=== PATIENT | male | born 1955 | race Caucasian/White ===

== ENCOUNTER → 2017-12-15 | Outpatient (CLI) | payer BC ==
[~2017-12-15] MED LIST: ADV100/50 INH; ALB6.7R INH; CEP500 PO
== END ==
LOC: LAB 12:38
PROVIDERS: ATTEND Orthopaedic Surgery Hand Surgery
DX: M25.571 Pain in right ankle and joints of right foot (principal); M25.474 Effusion, right foot; M10.9 Gout, unspecified
CPT/HCPCS: 36415; 84550

== ENCOUNTER → 2018-12-24 | Outpatient (REF) | payer BC ==
[~2018-12-24] MED LIST changes: +ALLO100T70 PO
== END ==
LOC: ZZPBJ 17:57
PROVIDERS: ATTEND Orthopaedic Surgery Hand Surgery
DX: M1A.9XX1 Chronic gout, unspecified, with tophus (tophi) (principal)
CPT/HCPCS: 87070; 87073; 87205

== ENCOUNTER → 2018-12-25 | Outpatient (REF) | payer BC | LOC: ZZSENDIN 12:00 | PROVIDERS: ATTEND Orthopaedic Surgery Hand Surgery | DX: M1A.9XX1 Chronic gout, unspecified, with tophus (tophi) (principal) | CPT/HCPCS: 88304 ==